=== PATIENT | male | born 1995 | race Caucasian/White ===

== ENCOUNTER 2022-03-14 18:15 | Emergency (ER) | payer SELFPAY ==
[2022-03-14 18:16] VITALS: BP 140/93; PULSE 97; RESP 16; TEMP 36.7; O2SAT 98; BMI 26.7
--- NOTE | 2022-03-14 18:22 | HMH.EDUPEXT ---
ED Disposition Clinical Impression: Laceration Disposition: Home, Self-Care Condition on Discharge: Fair Instructions: DI for Laceration Repair Additional Instructions: Follow-up with your primary care doctor in about 3 to 4 days for wound check. Return to the emergency department immediately if you notice worsening or reddening. Have the sutures removed in approximately 10 days. Prescriptions: Amoxicillin/Potassium Clav [Augmentin 500mg tab] 1 tab PO TID 7 Days #21 tab Transmission Status: Pending to [id number] Referrals: Provider,Referral, [Primary Care Provider] - - Critical Care Critical Care Time: No Attestation: On , the high probability of a clinically significant, sudden or life threatening deterioration of the following system(s) required my full and direct attention, intervention and personal management. The time I documented below is in addition to time spent performing reported procedures but includes the following listed in this critical care notation. Medical Decision Making - Cristhian Inquiry Pt receiving controlled substance: No Vital Signs: 03/14/22 18:16 Temperature 98.1 F Temperature Source Oral Pulse Rate [Left Radial] 97 H Respiratory Rate 16 Blood Pressure [Left Arm] 140/93 H Blood Pressure Mean [Left Arm] 108 Blood Pressure Source [Left Arm] Automatic Cuff Blood Pressure Position [Left Arm] Sitting 02 Sat by Pulse Oximetry 98 Oxygen Delivery Method Room Air Orders (Tests/Meds): ED MEDICATIONS Discontinued Medications Generic Name Dose Route Start Last Admin Trade Name Freq PRN Reason Stop Dose Admin Tetanus/Diphtheria Toxoids 0.5 ml 03/14/22 18:42 03/14/22 18:43 Tetanus-Diphth Toxoid, Adult 0.5ml Syr IM 03/14/22 18:43 0.5 ml .ONCE ONE Administration Tetanus/Reduced Diphtheria/Acell Pertussis 0.5 ml 03/14/22 18:28 Tet/Diphth/Pert-Adult 0.5ml Syringe IM 03/14/22 18:29 .ONCE ONE Upper Extremity HPI - General Stated Complaint: [place] 0701 lac to R index finger Time Seen by Provider: 03/14/22 18:22 Source of Information: Patient - History of Present Illness HPI narrative: The patient presents to the emergency department complaining of a laceration to his right index finger. He was attempting to remove a food decanted from his dog's mouth and slipped and cut himself on the can. His last tetanus immunization was more than 7 years ago. He is not allergic to any medications. MD complaint: injury to: right, finger - Related Data Previous Rx's Medication Instructions Recorded Amoxicillin/Potassium Clav 1 tab PO TID 7 Days #21 tab 03/14/22 [Augmentin 500mg tab] Allergies Allergy/AdvReac Type Severity Reaction Status Date / Time No Known Allergies Allergy Verified 03/14/22 18:37 [facility] History - Hepatitis A Screen Drug use history?: No Attestation statement:: This patient has been screened for Hepatitis A risk factors. ROS Obtained: Yes All systems reviewed & no additional complaints Physical Exam - General General appearance: alert, in no apparent distress - Head Head exam: atraumatic, normocephalic, normal inspection - Eye Eye exam: Present: normal appearance - ENT ENT exam: Present: normal exam, normal oropharynx - Neck Neck exam: Present: normal inspection, full ROM, trachea midline. Absent: meningismus, lymphadenopathy - Chest Chest inspection: Present: normal inspection, symmetric chest wall rise. Absent: tenderness - Respiratory Respiratory exam: Absent: respiratory distress - Cardiovascular Cardiovascular exam: Present: regular rate, normal rhythm. Absent: JVD - Abdominal Exam Abdominal exam: Absent: distention, tenderness, guarding - Extremities Exam Extremities exam: Present: full ROM, normal capillary refill, other (There is a laceration approximately 2 to 3 cm long on the volar aspect of the right index finger. The extremity is neurovascularly intact. There
--- NOTE | 2022-03-14 18:24 | PC.NURSE ---
MARISOL CRABTREE at
[2022-03-14 19:07] VITALS: BP 140/93; PULSE 97; RESP 17; TEMP 36.7; O2SAT 98
== END 2022-03-14 19:08 | disposition home or self-care (01) ==
PROVIDERS: Emergency Provider Emergency Medicine
DX: S61.210A Laceration without foreign body of right index finger without damage to nail, initial encounter (principal); W26.8XXA Contact with other sharp object(s), not elsewhere classified, initial encounter
CPT/HCPCS: 12002; 90471; 90714; 99283